=== PATIENT | male | born 2000 | race Caucasian/White ===

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

== ENCOUNTER 2019-03-13 09:50 | Emergency (ER) | payer OTHER ==
[~2019-03-13] VITALS: Ht 167.6 cm; Wt 68.0 kg
[2019-03-13] MEDS ORDERED: ZYRTEC10 M3 PO (10:16)
[2019-03-13] MEDS ORDERED: AMOXICILLIN500 M2 PO (10:16)
== END 2019-03-13 10:30 | disposition home or self-care (01) ==
LOC: ED 09:50
DX: J02.9 Acute pharyngitis, unspecified (principal); Z79.899 Other long term (current) drug therapy